=== PATIENT | female | born 1960 | race Caucasian/White ===

== ENCOUNTER 2017-10-13 12:41 | Outpatient (CLI) | payer MEDICARE, BC | END 2017-10-13 12:42 | disposition home or self-care (01) | LOC: BICMAMMO 12:41 | PROVIDERS: ATTEND Internal Medicine | DX: Z12.31 Encounter for screening mammogram for malignant neoplasm of breast (principal); M85.80 Other specified disorders of bone density and structure, unspecified site; Z79.52 Long term (current) use of systemic steroids | CPT/HCPCS: 77063; 77067; 77080 ==

== ENCOUNTER 2019-01-01 07:37 | Outpatient (CLI) | payer MEDICARE, BC ==
--- NOTE | 2019-01-01 09:29 | MMO ---
Bilateral MAMMO Bilat Screen [facility]. CLINICAL HISTORY: Patient is 58 years old and is seen for screening. The patient has the following family history of breast cancer: maternal aunt and cousin female, at age 51. The patient has no personal history of cancer. The patient has a history of left Stereotatic Biopsy in 2002 - Benign. VIEWS: The views performed were: bilateral craniocaudal with tomosynthesis and bilateral mediolateral oblique with tomosynthesis. FILMS COMPARED: The present examination has been compared to prior imaging studies performed at [facility] on 03/22/2007, 08/22/2015, 09/08/2016 and 10/13/2017. MAMMOGRAM FINDINGS: There are scattered fibroglandular densities. There are stable benign appearing calcifications seen in both breasts. There are no suspicious masses, suspicious calcifications, or new areas of architectural distortion. IMPRESSION: THERE IS NO MAMMOGRAPHIC EVIDENCE OF MALIGNANCY. A ROUTINE FOLLOW-UP MAMMOGRAM IN 1 YEAR IS RECOMMENDED. THE RESULTS OF THIS EXAM WERE SENT TO THE PATIENT. ACR BI-RADS Category 2 - Benign finding MAMMOGRAPHY NOTE: 1. A negative mammogram report should not delay a biopsy if a dominant of clinically suspicious mass is present. 2. Approximately 10% to 15% of breast cancers are not detected by mammography. 3. Adenosis and dense breasts may obscure an underlying neoplasm.
== END 2019-01-01 07:38 | disposition home or self-care (01) ==
LOC: BICMAMMO 07:37
PROVIDERS: ATTEND Internal Medicine
DX: Z12.31 Encounter for screening mammogram for malignant neoplasm of breast (principal); Z80.3 Family history of malignant neoplasm of breast
CPT/HCPCS: 77063; 77067

== ENCOUNTER 2023-07-13 09:17 | Outpatient (CLI) | payer MEDICARE, BC | END 2023-07-13 09:18 | disposition home or self-care (01) | LOC: BICMAMMO 09:17 | PROVIDERS: ATTEND Internal Medicine | DX: Z12.31 Encounter for screening mammogram for malignant neoplasm of breast (principal); Z80.3 Family history of malignant neoplasm of breast; Z91.89 Other specified personal risk factors, not elsewhere classified | CPT/HCPCS: 77063; 77067 ==

== ENCOUNTER 2023-10-07 08:54 | Outpatient (CLI) | payer MEDICARE | END 2023-10-07 08:55 | disposition home or self-care (01) | LOC: BICMAMMO 08:54 | PROVIDERS: ATTEND Internal Medicine Rheumatology | DX: Z13.820 Encounter for screening for osteoporosis (principal); M85.89 Other specified disorders of bone density and structure, multiple sites; Z78.0 Asymptomatic menopausal state | CPT/HCPCS: 77080 ==

== ENCOUNTER 2024-08-09 02:05 | Emergency (ER) | payer MEDICARE, SELFPAY ==
[2024-08-09] MEDS ORDERED: Acetaminophen 500 MG TAB ONE (02:53)
[2024-08-09] MEDS ORDERED: Prochlorperazine 10 MG/2 ML VIAL ONE (02:54)
[2024-08-09] MEDS ORDERED: diphenhydrAMINE 50 MG/ML VIAL ONE (02:54)
[2024-08-09 03:07] LABS: #Basophils Less than 0.03 10x3/uL (0.0-0.2); %Basophils 0.3 % (0.0-1.0); %Lymphocytes 11.9 % (21.0-51.0); %Neutrophils 78.7 % (42.0-75.0); Hematocrit 39.8 % (36.0-47.0); Hemoglobin 13.1 g/dL (12.0-16.0); Mean Corpuscular HGB CONC 32.9 g/dL (32.0-36.0); Mean Corpuscular Hemoglobin 27.4 pg (27.0-31.0); Mean Corpuscular Volume 83.3 fL (78.0-98.0); Mean Platelet Volume 12.5 fL (7.4-10.4); Platelet Count 172 10x3/uL (130-400); RBC Distribution Width 14.1 % (11.5-14.5); Red Blood Cell (RBC) Count 4.78 mill/uL (4.20-5.40)
[2024-08-09 03:26] LABS: Calc. Creatinine Clearance 0 mL/min (70-130); Estimated GFR 101; Prothrombin Time 13.1 sec (12.0-14.7)
[2024-08-09 03:27] LABS: PTT 28.7 sec (22.9-36.1)
[2024-08-09 03:28] LABS: ALT (SGPT) 19 U/L (8-55); AST (SGOT) 38 U/L (5-34); Albumin 3.5 g/dL (3.4-4.8); Alkaline Phosphatase 107 U/L (40-110); Anion Gap 13 mmol/L (10-20); BUN (Urea Nitrogen) 9 mg/dL (9.8-20.1); Bilirubin, Total 0.4 mg/dL (0.2-1.2); Calcium 9.9 mg/dL (7.8-10.44); Carbon Dioxide 24 mmol/L (23-31); Chloride 103 mmol/L (98-107); Globulin 4.8 g/dL (2.4-3.5); Glucose 106 mg/dL (80-115); Magnesium 1.7 mg/dL (1.6-2.6); Potassium 3.7 mmol/L (3.5-5.1); Protein, Total 8.3 g/dL (5.8-8.1); Sodium 136 mmol/L (136-145)
[2024-08-09 03:34] LABS: Troponin I 0.012 ng/mL (< 0.028)
[2024-08-09 04:25] LABS: Bacteria/HPF None Seen HPF (None Seen); Bilirubin Negative (Negative); Blood, Urine Trace (Negative); CAUTI Indications for Culture Dysuria,urgency,freq; Clarity Clear (Clear); Glucose, Urine (Dipstick) Normal (Negative); Ketone, Urine Negative (Negative); Leukocyte Negative Leu/uL (Negative); Nitrite Negative (Negative); Protein, Urine (Dipstick) Negative (Neg-Trace); RBC/HPF 0-3 HPF (0-3); Specific Gravity, Urine 1.007 (1.002-1.036); Squamous Epithelial 0-3 HPF (0-3); Urobilinogen Normal mg/dL (Less than 2); WBC/HPF 0-3 HPF (0-3); pH, Urine 6.5 (5.0-9.0)
[2024-08-09 04:29] LABS: Urine Culture Reflex No No
== END 2024-08-09 06:17 | disposition home or self-care (01) ==
LOC: ERS 02:05
DX: G43.909 Migraine, unspecified, not intractable, without status migrainosus (principal); M32.9 Systemic lupus erythematosus, unspecified; M35.00 Sjogren syndrome, unspecified; I65.8 Occlusion and stenosis of other precerebral arteries; I11.0 Hypertensive heart disease with heart failure; I50.9 Heart failure, unspecified; I48.91 Unspecified atrial fibrillation
CPT/HCPCS: 70496; 71045; 81001; 83605; 83735; 83880; 84145; 84484; 85610; 85730; 93005; J0780; J1200; 80053; 84443; 85025; 96365; 96366; 96375

== ENCOUNTER 2025-06-04 09:01 | Outpatient (CLI) | payer MEDICARE | END 2025-06-04 09:02 | disposition home or self-care (01) | LOC: BICMAMMO 09:01 | PROVIDERS: ATTEND Internal Medicine | DX: Z12.31 Encounter for screening mammogram for malignant neoplasm of breast (principal); Z80.3 Family history of malignant neoplasm of breast; Z91.89 Other specified personal risk factors, not elsewhere classified | CPT/HCPCS: 77063; 77067 ==